=== PATIENT | female | born 1975 | race Two or more races ===

== ENCOUNTER → 2023-04-07 10:00 | Outpatient (REF) | payer BC, SELFPAY | LOC: EMG 10:00 | PROVIDERS: ATTENDING PHYSICIAN Orthopaedic Surgery; FAMILY PHYSICIAN Internal Medicine | DX: R20.2 Paresthesia of skin (principal); R20.0 Anesthesia of skin | CPT/HCPCS: 95886; 95911 ==

== ENCOUNTER 2023-09-05 14:30 | Emergency (ER) | payer BC, SELFPAY ==
[2023-09-05 14:39] VITALS: BP 130/85
--- NOTE | 2023-09-05 15:38 | ED.GENMED ---
History of Present Illness
General
Chief Complaint: Back Pain
Time Seen by Provider: 09/05/23 15:24
History of Present Illness
History of Present Illness:
48 yo female presents to the Emergency Department for evaluation of R sided flank pain/low back pain x 3 days. Pain began suddenly, sharp in nature, radiates to the RLQ and the R groin. No fevers, chills, sweats, N/V/D. No urinary tract voiding
symptoms. Hx of L oophorectomy, no other abd surgeries. has been taking ibuprofen w/o relief.
Past History
Past History
ED Past Medical History: None
Social History
Tobacco: Non-smoker
Review of Systems
Review of Systems
Allergies reviewed?: Yes
All Other Systems: ROS reviewed and negative except as documented in HPI and ROS
Phy Exam
Physical Exam
Physical Exam:
GEN: Well appearing, NAD, WDWN
Eyes: PERRLA, EOMs intact, no scleral icterus
HENT: NCAT, oral mucosa moist
Lungs: CTAB, no wheezes, rales, rhonchi, normal chest wall excursion
Cardiac: RRR, no M/R/G, no peripheral edema. Radial pulses 2+ bilat
Abdomen: Soft; mildly tender to RLQ and R flank, no CVAT to percussion; no rigidity
Neuro: AO x 3
MSK: No gross deformity or ecchymosis. No edema. No digital clubbing
Skin: No rashes, petechiae. Normal color, no pallor or jaundice.
Psych: Calm, cooperative, proper hygiene
Course
Orders/Labs/Results
Orders:
Orders
09/05/23 15:30
CT Abd/Pel (IV only)-DH only Urgent
Comment:
Reason For Exam: RLQ/R flank pain
Ketorolac [Toradol] 15 mg IV NOW STA
09/05/23 15:31
Test Result ONCE
09/05/23 15:41
Complete Blood Count/With Diff Urgent
Comprehensive Metabolic Panel Urgent
HCG, Serum Qualitative Screen Urgent
09/05/23 15:53
Urinalysis Reflex To Culture Urgent
Date Specimen was Collected: 09/05/23
Time Specimen was Collected: 15:42
Abnormal Lab Results
09/05/23
15:41
WBC 11.5 H 10^3/uL
(4.8-10.8)
MCV 78.0 L fL
(81.0-99.0)
MCH 25.8 L pg
(27.0-31.0)
Abs Immat Gran (auto) 0.1 H 10^3/uL
(0-0.05)
Absolute Neuts (auto) 8.6 H 10^3/uL
(1.4-6.5)
Lymphocytes % 18.9 L %
(20.5-51.1)
Carbon Dioxide 21 L mmol/L
(22-30)
09/05/23 15:41
09/05/23 15:41
Vital Signs
Initial and Last Documented VS:
Initial Vital Signs
Temp Pulse Resp BP Pulse Ox
98.1 F 85 20 130/85 99
09/05/23 14:39 09/05/23 14:39 09/05/23 14:39 09/05/23 14:39 09/05/23 14:39
Last Documented Vital Signs
Temp Pulse Resp BP Pulse Ox
98.1 F 71 18 124/71 99
09/05/23 14:39 09/05/23 19:03 09/05/23 19:03 09/05/23 19:03 09/05/23 14:39
MDM/Problems Addressed
MDM/Problems Addressed:
Labs and imaging are unremarkable. Source of pain is most likely musculoskeletal in nature, discussed supportive care, as she has been taking NSAIDs without relief will trial a course of steroids
*Critical Care Note
Total Time (30-74mins, 75-104mins- exclusive of procedures): Not Applicable
ED Attending Note
-
Portions of this chart may have been created with voice recognition software.� Occasional wrong word or��sound alike� substitutions may have occurred due to the inherent limitations of voice recognition software.
Discharge Plan
Departure
Patient Disposition: Home (Routine Discharge)
Date of Disposition: 09/05/23
Time of Disposition: 18:44
Patient with high blood pressure during this ER visit?: No
Discharge Problem:
Acute right lumbar radiculopathy
Instructions: Sciatica (DC)
Prescriptions:
New
methylprednisolone [Medrol (Choco)] 4 mg tablets,dose pack
See Rx Instructions .ROUTE .COMPLEX Qty: 21 0RF
Rx Instructions:
orally per package directions
No Action
oxycodone 5 MG tablet
5 mg PO Q6H PRN (Reason: pain) Qty: 30 0RF
Referrals:
UNKNOWN - PT DOES,NOT KNOW [Family Provider] -
Activity Restrictions/Additional Instructions:
See your primary care physician in the next 1 to 2 weeks for follow-up as you may need additional testing or treatment if the steroid medicines do not help
Interventions
Interventions:
*Risk Screen - Suicide Last Done: 09/05/23 14:39
*General Assessment Last Done: 09/05/23 14:39
*Neglect/Abuse Screening Last Done: 09/05/23 14:39
*Nursing Disposition Last Done: 09/05/23 19:03
ED-Musculoskeletal Assessment Last Done: 09/05/23 17:50
Discharge Date and Time
Discharge Date/Time: 09/05/23 19:04
Print Language: MONTENEGRIN
[2023-09-05] MEDS: TORADOL 15 MG IV (15:43)
[2023-09-05 15:50] LABS: % Basophils 0.4 % (0-2); % Eosinophils 0.8 % (0-6); % Immature Granulocytes 0.4 % (0-0.5); % Lymphocytes 18.9 % (20.5-51.1); % Neutrophils 74.5 % (42.2-75.2); Absolute Basophils 0.1 10^3/uL (0-0.2); Absolute Eosinophils 0.1 10^3/uL (0-0.7); Absolute Immature Granulocytes 0.1 10^3/uL (0-0.05); Absolute Lymphocytes 2.2 10^3/uL (1.2-3.4); Absolute Monocytes 0.6 10^3/uL (0.1-0.6); Absolute Neutrophils 8.6 10^3/uL (1.4-6.5); Hematocrit 39.6 % (37.0-47.0); Hemoglobin 13.1 g/dL (12.0-16.0); Mean Corp Hgb Conc. 33.1 g/dL (33.0-37.0); Mean Corpuscular Hgb 25.8 pg (27.0-31.0); Mean Platelet Volume 9.6 fL (7.4-10.4); Nucleated Red Blood Cells % 0 %; Platelet Count 280 10^3/uL (130-400); Red Blood Cell Count 5.08 10^6/uL (4.20-5.40); Red Cell Dist. Width 14.3 % (11.5-14.5); White Blood Cell Count 11.5 10^3/uL (4.8-10.8)
[2023-09-05 16:00] LABS: HCG, Serum Qualitative Screen Negative
[2023-09-05 16:00] LABS: Urine Albumin Negative (Neg - Trace); Urine Bilirubin Negative (Negative); Urine Character Clear (Clear); Urine Color Yellow; Urine Glucose Negative (Negative); Urine Ketone Negative (Negative); Urine Leukocyte Negative (Negative); Urine Nitrite Negative (Negative); Urine Occult Blood Negative (Negative); Urine Urobilinogen Negative (Neg - 1+)
[2023-09-05 16:07] LABS: ALT (SGPT) 28 U/L (0-35); AST (SGOT) 30 U/L (14-36); Albumin 4.9 g/dl (3.5-5.0); Alkaline Phosphatase 69 U/L (38-126); Blood Urea Nitrogen 9 mg/dl (7-17); Carbon Dioxide 21 mmol/L (22-30); Chloride 106 mmol/L (98-107); Glucose 92 mg/dl (70-99); Potassium 4.3 mmol/L (3.5-5.1); Sodium 139 mmol/L (135-145); Total Bilirubin 0.7 mg/dl (0.2-1.3); Total Protein 8.2 g/dl (6.3-8.2); eGFR > 60.00
[2023-09-05 19:02] VITALS: BP 124/71
[2023-09-05 19:03] VITALS: BP 124/71
== END 2023-09-05 19:04 | disposition home or self-care (01) ==
LOC: EMR 14:30
PROVIDERS: Physician Assistant; EMERGENCY PHYSICIAN Emergency Medicine
DX: M54.16 Radiculopathy, lumbar region (principal); R10.9 Unspecified abdominal pain
CPT/HCPCS: 99285; 96374; 74177; 80053; 81003; 84703; 85025; Q9967